=== PATIENT | male | born 1960 | race Caucasian/White ===

== ENCOUNTER 2017-01-01 11:17 | Day surgery (SDC) | payer BC ==
[~2017-01-01 11:17] MED LIST: BACITRACIN 50,000 UNITS/10 ML SYR IRR ONE; BUPIVACAINE 0.5% 30 ML SDV ONE; DESMOPRESSIN ACETATE IV ONE; NS IV ONE; POLYMYXIN B SULFATE 500,000 UNIT/10 ML SYR IRR ONE
[2017-01-01] MEDS ORDERED: LIDOCAINE 1% 2 ML INJ ONE (12:11)
[2017-01-01] MEDS ORDERED: LR 1,000 ML IV ONE (12:14)
[2017-01-01] MEDS ORDERED: ceFAZolin 2 GM/DEXTROSE 100 ML IV ONE (13:00)
[2017-01-01] MEDS ORDERED: fentaNYL 100 MCG/2 ML INJ ONE ×2 (13:39→14:58)
[2017-01-01] MEDS ORDERED: OXYCODONE/APAP 5/325 TAB ONE (14:58)
--- NOTE | 2017-01-03 08:58 | GOP ---
[f rep st] OPERATIVE REPORT DATE OF OPERATION: 01/01/2017 SURGEON: Fletcher Pham MD ANESTHESIA: General. PREOPERATIVE DIAGNOSIS: Right 3rd toe infection/deformity. POSTOPERATIVE DIAGNOSIS: Right 3rd toe infection/deformity. PROCEDURE PERFORMED: Right 3rd toe partial amputation. FINDINGS: ESTIMATED BLOOD LOSS: Minimal. INDICATIONS: The patient is a 56-year-old with history of multiple foot surgeries stemming from [place]. The patient was having deformity of his 3rd toe which is resulting in recurrent u lcerations. Based on his persistence of ulcerations and deformity, he is interested in pursuing ope rative treatment. From an operative standpoint, a partial 3rd-toe amputation was recommended. The patient acknowledged he understood the potential risks, including but not limited to, bleeding, infe ction, neurovascular damage, loss of limb or limb function, persistence of pain, deformity or ulcera tions despite operative treatment, and anesthetic risks. He acknowledged he understood the potentia l risks, planned procedure, and postoperative plan well and had all questions answered. He gave his consent for the operative procedure. DESCRIPTION OF PROCEDURE: The patient was brought in the operating room after IV antibiotics were a dministered. He was placed in a supine position where general anesthetic was administered. A tourn iquet was placed on the right ankle, and the right foot was prepped and draped in standard sterile f ashion. After marking the incision and Bryson wrap exsanguination, a tourniquet was inflated to 250. An incision was made on the toe, ellipsing out his ulceration and allowing for a flap closure utiliz ing the distal medial skin which was favorable. Skin and subcutaneous tissue were sharply incised. Sharp dissection was carried down to the bone. The PIP joint was identified, and the distal aspect of the toe removed, leaving a full-thickness skin flap for closure. The skin was then brought back and placed. Tourniquet was deflated with no untoward bleeding seen. Subcutaneous tissue was close d with a 3-0 Vicryl suture in interrupted fashion. The skin was closed with 4-0 nylon interrupted s utures. The flap showed favorable return of blood flow. The wounds were dressed with sterile Adapt ic, 4 x 4, and Ron. Patient tolerated the procedure well and was taken to the recovery room, extu bated, in stable condition postoperatively. All sponge, needle, and instrument counts were reported as being correct. DRAINS: None. COMPLICATIONS: None. PLAN: The patient will be discharged home, weightbearing as tolerated in a postop shoe. /[id number]/MODL
== END 2017-01-01 18:00 | disposition home or self-care (01) ==
LOC: FSGY 11:17
PROVIDERS: ATTEND Orthopaedic Surgery Foot and Ankle Surgery
PROC: 0QBQ0ZZ Excision of Right Toe Phalanx, Open Approach (ICD-10-PCS; principal; 2017-01-01 12:30)
DX: M21.6X1 Other acquired deformities of right foot (principal); G60.0 Hereditary motor and sensory neuropathy; D68.0 Von Willebrand disease; E11.9 Type 2 diabetes mellitus without complications; H93.19 Tinnitus, unspecified ear; E78.5 Hyperlipidemia, unspecified; M10.9 Gout, unspecified
CPT/HCPCS: J0690; J2597; J3010